=== PATIENT | female | born 1990 | race Caucasian/White ===

== ENCOUNTER 2025-05-23 14:54 | Emergency (ER) | payer OTHER, SELFPAY ==
[2025-05-23 15:08] VITALS: BP 155/93; PULSE 82; RESP 18; TEMP 36.4; O2SAT 100
--- NOTE | 2025-05-23 15:22 | ED_ITS ---
HPI - Female Genitourinary General Chief complaint: Urogenital-Female Stated complaint: UTI Time Seen by Provider: 05/23/25 15:22 Source: patient and RN notes reviewed Mode of arrival: ambulatory Limitations: no limitations History of Present Illness HPI Narrative: 34-year-old female presents concern for intermittent vaginal itching and vaginal discharge that is not foul-smelling. Reports she started having in about November when she stopped her control pills. Reports she only has the symptoms intermittently, she is currently not having them. She reports she sometimes will have itching and sometimes only discharge, sometimes she has both same time. She reports she has tried fluconazole in the past with clearance of symptoms for a while, she has also tried topical miconazole. She denies known exposure to STDs but would still like to be tested. She denies dysuria, frequency, urgency, abdominal pain, suprapubic pressure, nausea vomiting MD elicited complaint: UTI Related Data Home Medications ?Medication ?Instructions ?Recorded ?Confirmed ?Last Taken ?Type escitalopram oxalate 10 mg tablet mg 05/23/25 Unknown History valacyclovir 500 mg tablet mg 05/23/25 Unknown Histor y Allergies Allergy/AdvReac Type Severity Reaction Status Date / Time vancomycin Allergy Mild Rash Verified 05/23/25 15:13 Review of Systems Review of Systems: CONSTITUTIONAL: Denies malaise, chills, sweats, or fever. CARDIOVASCULAR: Denies chest pain, palpitations, or edema. RESPIRATORY: Denies cough or dyspnea. GASTROINTESTINAL: Denies abdominal pain, nausea, vomiting, diarrhea GENITOURINARY: Reports intermittent vaginal itching and discharge. Denies dysuria, frequency, urgency, suprapubic pressure. Denies flank pain or hematuria. SKIN: Denies rash or itching. MUSCULOSKELETAL: Denies back pain or myalgia. All systems reviewed & are unremarkable except as noted in HPI and below PMFSH Comments At time of signature, agree with nursing past medical, surgical, social and family history. There is no relevant family history pertinent to the presenting complaint Exam Narrative: GENERAL: Well-appearing, well-nourished, and in no acute distress. HEAD: Normocephalic. EYES: PERRLA, conjunctivae clear. NECK: Supple. No lymphadenopathy CHEST: Clear to auscultation. No respiratory distress. HEART: Regular rate and rhythm. SKIN: Warm, dry, no rash. NEURO: Alert and oriented x3. PSYCH: Normal mood and affect Course Course Emergency Course: Patient is aware of diagnosis, understands and agrees to treatment plan. Anticipatory guidance given. Patient agrees to follow-up as directed and is aware of reasons to seek care at the emergency department. Portions of this record may have been created with voice recognition software Level of Care: Express Care Visit Vital Signs Vital signs: Vital Signs Temperature 97.6 F 05/23/25 15:08 Pulse Rate 82 05/23/25 15:08 Respiratory Rate 18 05/23/25 15:08 Blood Pressure 155/93 H 05/23/25 15:08 Pulse Oximetry 100 05/23/25 15:08 Oxygen Delivery Room Air 05/23/25 15:08 Temperature 97.6 F 05/23/25 15:08 Pulse Rate 82 05/23/25 15:08 Respiratory Rate 18 05/23/25 15:08 Blood Pressure 155/93 H 05/23/25 15:08 Pulse Oximetry 100 05/23/25 15:08 Oxygen Delivery Room Air 05/23/25 15:08 [facility] MDM Narrative Medical decision making narrative: This patient symptoms are intermittent, she is not currently having symptoms. She is having symptoms of urinary tract infection. Symptoms sound most consistent with alteration and vaginal pH around her menstrual cycle. Based on patient's intermittent itching will treat with a single dose of fluconazole, pending results from BV and STI testing. Patient declines prophylactic treatment for STI at this time. 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 Differential Diagnosis Differential Diagnosis: I evaluated this patient in the [facility]. History is obtained from patient who is an independent historian and physical exam was performed.? Available medical records were reviewed. ? Exam findings and relevant testing show no acute concerns or changes; patient is non-toxic appearing and is in no distress. ? Exam findings and UA show no acute concerns or changes; patient is non-toxic appearing and is in no distress. No CMT, adnexal tenderness, or evidence of pelvic etiology. Differential diagnosis include pyelonephritis, STI, cystitis, urinary tract infection, acute abdomen, gastroenteritis, yeast infection Differential diagnosis and treatment plan were discussed with the patient. P atient agrees with discussion and after shared medical decision making agrees with plan of care. All questions were answered to the patient's satisfaction. Patient is appropriate for outpatient treatment and follow-up. Discharge Plan Discharge Clinical Impression: Vaginal itching Patient Disposition: Home Condition: Stable Instructions: Yeast Infection (ED) Additional Instructions: You have been tested for potential bacterial vaginosis, yeast infection, gonorrhea, chlamydia, and trichomoniasis today. You have received treatment for yeast infection. You will receive a phone call with the results of today's testing, any other necessary treatment will be discussed at that time. Use bor ic acid supplements per package directions daily or around your menstrual cycle as needed. If you test positive for any STD, It is very important that you avoid unprotected intercourse during treatment and for 7 days AFTER TREATMENT is complete and until your partner(s) have been treated. Please encourage your partner(s) to seek testing and treatment. When you have been exposed to sexually transmitted infections, it is important that you seek comprehensive testing, since we do not provide testing for all sexually transmitted infections. Some infections can have no symptoms, but cause serious health problems. Contact your health care provider or report to the emergency department if: You have genital swelling or pain, or unusual bleeding. You have joint pain, rash, swollen lymph nodes or night sweats. You are severe abdominal pain. You have a fever. Symptoms do not go away or they get worse even after treatment. You have bleeding or pain during sex. Patient Language: Citizen Of [place] Prescriptions: New fluconazole 150 mg tablet 150 mg PO Q48H 1 Days Qty: 1 0RF No Action valacyclovir 500 mg tablet escitalopram oxalate 10 mg tablet Follow-up/Referrals: UNKNOWN,DOCTOR [Primary Care Provider] Time of Disposition: 15:39
--- OUTSIDE RECORDS SUMMARY | 2025-05-23 19:48 | XMS_ITS | Clinical Summary ---
Author Organization [employer] [facility] lin Address [address] [place] [address] Care Team Providers Care Shearing Supervisor Name Role Phone Unavailable Primary Care Provider Unavailabl e Social History Tobacco Use Types Packs/Day Years Used Date Smoking Tobacco: Never Assessed Comments Unknown Sex and Gender Information Value Date Recorded Sex Assigned at Not on file Legal Sex Female 10:05 AM EDT Gender Identity Not on file Sexual Orientation Not on file Plan of Treatment Not on file Medical Devices Not on file
[2025-05-23 20:22] LABS: Trichomonas Vag PCR NOT DETECTED (NOT DETECTE)
== END 2025-05-23 15:49 | disposition home or self-care (01) ==
PROVIDERS: Emergency Provider Nurse Practitioner
DX: N89.8 Other specified noninflammatory disorders of vagina (principal); Z11.3 Encounter for screening for infections with a predominantly sexual mode of transmission
CPT/HCPCS: 87070; 87491; 87591; 87661; 87798; 99203; G0463